=== PATIENT | female | born 1995 | race Caucasian/White ===

== ENCOUNTER 2022-10-02 19:04 | Emergency (ER) | payer MEDICAID, OTHER ==
[~2022-10-02] VITALS: Ht 167.6 cm; Wt 95.5 kg
[2022-10-02 19:32] VITALS: BP 130/74
[2022-10-02] MEDS ORDERED: AMOX-117 PO (20:22)
== END 2022-10-02 20:35 | disposition home or self-care (01) ==
LOC: ER 19:04
DX: H66.93 Otitis media, unspecified, bilateral (principal); R09.81 Nasal congestion; R05.9 Cough, unspecified; H57.89 Other specified disorders of eye and adnexa; Z79.899 Other long term (current) drug therapy; Z72.89 Other problems related to lifestyle
CPT/HCPCS: 99283

== ENCOUNTER 2022-10-10 21:44 | Emergency (ER) | payer MEDICAID ==
[~2022-10-10] VITALS: Ht 167.6 cm; Wt 88.2 kg
[~2022-10-10 21:44] MED LIST: AMOX-117 PO
[2022-10-10 21:46] VITALS: BP 123/78
[2022-10-10 22:05] LABS: URINE HCG POSITIVE (NEG)
[2022-10-10 22:14] LABS: CLARITY,URINE SLIGHTLY CLOUDY (Clear); COLOR,URINE AMBER (Yellow); GLUCOSE, URINE NEGATIVE (Neg); KETONES,URINE NEGATIVE (Neg); LEUKOCYTE ESTERASE ,URINE NEGATIVE (Neg); NITRITES, URINE NEGATIVE (Neg); OCCULT BLOOD,URINE SMALL (Neg); PH,URINE 5.5 (4.8-8.0); PROTEIN,URINE TRACE mg/dl (Neg); UROBILINOGEN,URINE 0.2 E.U/dL (0.2-1.0)
[2022-10-10 22:19] LABS: UA COLLECTION TYPE CLN CATCH MIDSTREAM
[2022-10-10 22:28] LABS: BACTERIA,URINE NONE SEEN /HPF (Neg); MUCUS STRANDS MANY /LPF (Neg); RBC,URINE 0-2 /HPF (0-2); SQUAMOUS EPITHELIAL CELL,UR FEW /LPF (FEW); WBC,URINE 0-4 /HPF (0-4)
[2022-10-10 22:32] LABS: BASOPHILS # (AUTO) 0.1 X10'3 (0-0.2); BASOPHILS % (AUTO) 0.5 % (0-1); EOSINOPHILS # (AUTO) 0.2 X10'3 (0-0.9); EOSINOPHILS % (AUTO) 1.9 % (0-6); HEMATOCRIT 35.8 % (35.0-45.0); HEMOGLOBIN 11.8 g/dl (12.0-16.0); LYMPHOCYTES # (AUTO) 3.2 X10'3 (1.1-4.8); LYMPHOCYTES % (AUTO) 24.9 % (21-51); MEAN CORPUSCULAR HEMOGLOBIN 28.8 PG (27.0-31.0); MEAN CORPUSCULAR HGB CONC 33.1 g/dL (33.0-36.5); MEAN CORPUSCULAR VOLUME 87.1 FL (78-98); MEAN PLATELET VOLUME 8.5 FL (7.4-10.4); MONOCYTES # (AUTO) 1.1 X10'3 (0-0.9); MONOCYTES % (AUTO) 8.6 % (2-12); NEUTROPHILS # (AUTO) 8.2 X10'3 (1.8-7.7); NEUTROPHILS % (AUTO) 64.1 % (42-75); PLATELET COUNT 325 X10'3 (140-440); RED BLOOD COUNT 4.11 X10'6 (4.20-5.60); RED CELL DISTRIBUTION WIDTH 15.5 % (11.5-14.5); WHITE BLOOD COUNT 12.9 X10'3 (4.5-11.0)
[2022-10-10 22:47] LABS: ALANINE AMINOTRANSFERASE 20 U/L (12-78); ALBUMIN 3.5 G/DL (3.4-5.0); ALBUMIN/GLOBULIN RATIO 0.9 (1.1-1.5); ALKALINE PHOSPHATASE 67 IU/L (46-116); ANION GAP 8 (8-16); ASPARTATE AMINO TRANSFERASE 16 U/L (10-37); BILIRUBIN,TOTAL 0.3 MG/DL (0.1-1.0); BLOOD UREA NITROGEN 6 MG/DL (7-18); BUN/CREATININE RATIO 8.5 (10.0-20.0); CALCIUM 8.8 MG/DL (8.5-10.1); CHLORIDE 101 MMOL/L (99-107); CREATININE 0.71 MG/DL (0.40-0.90); GLUCOSE 93 MG/DL (70-104); LIPASE 51 U/L (73-393); POTASSIUM 3.6 MMOL/L (3.5-5.1); SODIUM 136 MMOL/L (135-145); TOTAL CARBON DIOXIDE 27.1 MMOL/L (24-32); TOTAL PROTEIN 7.5 G/DL (6.4-8.2); eGFR > 90 ML/MIN
[2022-10-10] MEDS ORDERED: ONDA8TAB13 PO (23:59)
[2022-10-10] MEDS ORDERED: PANT-47 PO (23:59)
[2022-10-11] MEDS ORDERED: pantoprazole 40mg Tablet.DR PO ONE
== END 2022-10-11 00:11 | disposition home or self-care (01) ==
LOC: ER 21:45
DX: K22.6 Gastro-esophageal laceration-hemorrhage syndrome (principal); Z79.899 Other long term (current) drug therapy
CPT/HCPCS: 36415; 80053; 81001; 81025; 83690; 85025; 99283

== ENCOUNTER 2023-03-06 18:19 | Emergency (ER) | payer MEDICAID ==
[~2023-03-06] VITALS: Ht 172.7 cm; Wt 79.3 kg
[~2023-03-06 18:19] MED LIST changes: -AMOX-117 PO; +ONDA8TAB13 PO; +PANT-47 PO
[2023-03-06 19:18] LABS: STREP A SCREEN POSITIVE (Neg)
[2023-03-06] MEDS ORDERED: dexamethasone sod phosphate 10mg/ml inj IM STA (19:21)
[2023-03-06] MEDS ORDERED: AMOX-117 PO (19:33)
[2023-03-06 19:45] VITALS: BP 136/76; PULSE 112; RESP 18; TEMP 100.1; O2SAT 98
--- NOTE | 2023-03-06 20:52 | NUR ---
I have reviewed and agree with all interventions, assessments performed and documented by (DRAKE Kim)
== END 2023-03-06 19:47 | disposition home or self-care (01) ==
LOC: ER 18:20
DX: J35.1 Hypertrophy of tonsils (principal); Z79.899 Other long term (current) drug therapy
CPT/HCPCS: 87880; 96372; 99283; J1100